=== PATIENT | female | born 1985 | race African-American/Black ===

== ENCOUNTER 2018-09-12 09:55 | Emergency (ER) | payer SELFPAY ==
[2018-09-12 10:02] VITALS: BP 120/60
[2018-09-12] MEDS ORDERED: ONDANSETRON 4 MG TAB.RAPDIS PO ONE (10:09)
[2018-09-12] MEDS ORDERED: FAMOTIDINE 20 MG TABLET PO ONE (10:09)
--- NOTE | 2018-09-12 10:21 | ER Document Report ---
ED General - General Chief Complaint: Upper Abdominal Pain Stated Complaint: STOMACH/BACK PAIN, VOMITING Time Seen by Provider: 09/12/18 10:03 TRAVEL OUTSIDE OF THE [place] IN LAST 30 DAYS: No - HPI Notes: Patient is a 33-year-old female that presents to the emergency department for chief complaint of abdominal pain and nausea. Patient reports 2 days of epigastric abdominal pain. The pain initially was intermittent and has now become more constant. She denies any aggravating or relieving factors. The pain does not change when she eats food. She has a history of cholecystectomy in the past. Patient has tried Tylenol at home for her symptoms which gave her some relief of the pain, her last dose was yesterday evening. She also reports nausea and one episode of emesis yesterday and today. Patient states her LMP was 08/13 and she has been having unprotected sexual intercourse. She denies any vaginal discharge or bleeding or concern for STD. Patient also complaining of urinary frequency but denies dysuria and fevers Past Medical History: Negative Past Surgical History: Cholecystectomy, x2 Social History: Denies drugs alcohol and tobacco Family History: Reviewed and noncontributory for presenting illness Allergies: Reviewed, see documented allergy list. REVIEW OF SYSTEMS: CONSTITUTIONAL : No fever No chills No diaphoresis No recent illness EENT: No vision changes No congestion No sore throat CARDIOVASCULAR: No chest pain No palpitations RESPIRATORY: No shortness of breath No cough No difficulty breathing GASTROINTESTINAL: abdominal pain nausea vomiting No diarrhea GENITOURINARY: No dysuria Urinary frequency No hematuria No difficulty urinating MUSCULOSKELETAL: No back pain No leg pain No arm pain SKIN: No rashes No lesions LYMPHATIC: No swollen, enlarged glands. NEUROLOGICAL: No lightheadedness No headache No weakness No paresthesias PSYCHIATRIC: No anxiety No depression PHYSICAL EXAMINATION: Vital signs reviewed, nursing noted reviewed. GENERAL: Well-appearing, well-nourished and in no acute distress. HEAD: Atraumatic, normocephalic. EYES: Eyes appear normal, extraocular movements intact, sclera anicteric, conjunctiva are normal. ENT: nares patent, oropharynx clear without exudates. Moist mucous membranes. NECK: Normal range of motion, supple without lymphadenopathy LUNGS: Breath sounds clear to auscultation bilaterally and equal. No wheezes rales or rhonchi. HEART: Regular rate and rhythm without murmurs ABDOMEN: Soft, nontender, normoactive bowel sounds. No rebound, guarding, or rigidity. No masses appreciated. EXTREMITIES: Nontender, good range of motion, no pitting or edema. NEUROLOGICAL: No focal neurological deficits. Moves all extremities spontaneously Motor and sensory grossly intact on exam. PSYCH: Normal mood, normal affect. SKIN: Warm, Dry, normal turgor, no rashes or lesions noted on exposed skin - Related Data Allergies/Adverse Reactions: grape Allergy (Verified 09/12/18 09:57) Penicillins Allergy (Verified 09/12/18 09:57) Past Medical History - Social History Smoking Status: Never Smoker Frequency of alcohol use: None Drug Abuse: None Family History: Reviewed & Not Pertinent Patient has suicidal ideation: No Patient has homicidal ideation: No Renal/ Medical History: Denies: Hx Peritoneal Dialysis Past Surgical History: Reports: Hx Section - x2, Hx Cholecystectomy Physical Exam - Vital signs Vitals: Temp Pulse Resp BP Pulse Ox 99.1 F 85 20 120/60 98 09/12/18 09:58 09/12/18 09:58 09/12/18 09:58 09/12/18 09:58 09/12/18 09:58 Course - Re-evaluation Re-evalutation: 09/12/18 10:21 Vitals reviewed. Nursing notes reviewed. Patient afebrile and nontoxic- appearing. She has no abdominal tenderness or peritoneal signs. She was given Zofran and Pepcid for symptomatic management. 09/12/18 11:07 Patient reevaluated. She is complaining of some low back pain but still denying any abdominal pain, vaginal discharge or pelvic pain. She is currently and ultrasound will be obtained to evaluate for ectopic because of her low back complaint. Urinalysis is positive for infection and patient given a dose of Macrobid. Patient states she is feeling better currently than when she presented. 09/12/18 12:22 Patient is Rh+ and not requiring RhoGam. 09/12/18 13:30 Patient's chlamydia test is positive. She will receive antibiotics in the emergency room. Ultrasound shows 5-week 2-day intrauterine gestation however pole was not visualized. It is recommended she have a repeat evaluation in 7-10 days. She was referred to the health department for [facility] follow-up. All questions answered. Discharged in stable condition. Laboratory 09/12/18 09/12/18 09/12/18 10:10 11:11 11:11 Beta HCG, Quant 3008.50 H Total Beta HCG POSITIVE Urine Color YELLOW Urine Appearance CLEAR Urine pH 6.0 Ur Specific Mcbrides 1.012 Urine Protein NEGATIVE Urine Glucose (UA) NEGATIVE Urine Ketones NEGATIVE Urine Blood SMALL H Urine Nitrite NEGATIVE Urine Bilirubin NEGATIVE Urine Urobilinogen NEGATIVE Ur Leukocyte Esterase MODERATE H Urine WBC (Auto) 15 Urine RBC (Auto) 2 Squamous Epi Cells Auto 1 Urine Mucus (Auto) OCC Urine Ascorbic Acid NEGATIVE Urine HCG, Qual POSITIVE H Chlamydia DNA (PCR) N.gonorrhoeae DNA (PCR) Blood Type A POSITIVE Rhogam Indicated RHOGAM NOT INDICATED 09/12/18 11:16 Beta HCG, Quant Total Beta HCG Urine Color Urine Appearance Urine pH Ur Specific Mcbrides Urine Protein Urine Glucose (UA) Urine Ketones Urine Blood Urine Nitrite Urine Bilirubin Urine Urobilinogen Ur Leukocyte Esterase Urine WBC (Auto) Urine RBC (Auto) Squamous Epi Cells Auto Urine Mucus (Auto) Urine Ascorbic Acid Urine HCG, Qual Chlamydia DNA (PCR) DETECTED H N.gonorrhoeae DNA (PCR) NOT DETECTED Blood Type Rhogam Indicated Transvaginal US 09/12/18 11:01 IMPRESSION: pole is not visualized. A follow-up examination in 7 to 10 days for re-evaluation. EGA 5 weeks 2 days Small uterine fibroid. Trimester of : First - 0 to 13 weeks. - Vital Signs Vital signs: Temp Pulse Resp BP Pulse Ox 99.1 F 85 20 120/60 98 09/12/18 09:58 09/12/18 09:58 09/12/18 09:58 09/12/18 09:58 09/12/18 09:58 - Laboratory Laboratory results interpreted by nj: 09/12/18 09/12/18 09/12/18 10:10 11:11 11:16 Beta HCG, Quant 3008.50 H Urine Blood SMALL H Ur Leukocyte Esterase MODERATE H Urine HCG, Qual POSITIVE H Chlamydia DNA (PCR) DETECTED H Discharge - Discharge Clinical Impression: Nausea, Chlamydia Qualifiers: Weeks of gestation: less than 8 weeks Qualified Code(s): Z3A.01 - Less than 8 weeks gestation of Low back pain Qualifiers: Chronicity: acute Back pain laterality: bilateral Sciatica presence: without sciatica Qualified Code(s): M54.5 - Low back pain UTI (urinary tract infection) Qualifiers: Urinary tract infection type: site unspecified Hematuria presence: without hematuria Qualified Code(s): N39.0 - Urinary tract infection, site not specified Condition: Stable Disposition: HOME, SELF-CARE Instructions: Urinary Tract Infection ([facility]), Chlamydia ([facility]), ([facility]) Additional Instructions: Please return to the emergency department if you have any worsening, or concern of your symptoms. Please return to the emergency department if you develop chest pain, difficulty breathing, severe abdominal pain, or ongoing vomiting. Please follow-up with your primary care physician in 2-3 days and any other recommended physicians. If prescribed, take all medications as directed. If you have any questions or concerns do not hesitate to return the emergency department for evaluation. [] Prescriptions: Nitrofurantoin Macrocrystal [Nitrofurantoin] 100 mg PO Q6 5 Days capsule Referrals: [facility] [Provider Group] - Follow up as needed [facility] [NO LOCAL MD] - Follow up in 3-5 days
[2018-09-12 10:51] LABS: APPEARANCE,URINE CLEAR; BILIRUBIN,URINE NEGATIVE (NEGATIVE); COLOR,URINE YELLOW; GLUCOSE, URINE NEGATIVE (NEGATIVE); KETONES,URINE NEGATIVE (NEGATIVE); LEUKOCYTE ESTERASE,URINE MODERATE (NEGATIVE); NITRITE,URINE NEGATIVE (NEGATIVE); PROTEIN,URINE NEGATIVE (NEGATIVE); URINE SPECIFIC GRAVITY 1.012; UROBILINOGEN,URINE NEGATIVE mg/dL (<2.0)
[2018-09-12] MEDS ORDERED: NITROFURANTOIN MONOHYD/M-CRYST 100 MG CAPSULE PO ONE (11:03)
[2018-09-12 13:14] LABS: CHLAM PCR DETECTED (NOT DETECT); GON PCR NOT DETECTED (NOT DETECT)
--- NOTE | 2018-09-12 13:27 | RADIOLOGY REPORT (SQ) ---
EXAM DESCRIPTION: U/S OB TRANSVAG W/DOPPLER COMPLETED DATE/TIME: 09/12/2018 1:10 pm REASON FOR STUDY: COMPARISON: None. TECHNIQUE: Transvaginal static and realtime grayscale images acquired of the pelvis. Additional remberto cted spectral and color Doppler images recorded. All images stored on PACs. [email or web address] CLINICAL DATES: BRIAN: 05/10/2019 EGA: 5 weeks 5 days LIMITATIONS: None. FINDINGS: FETUS: No pole is visualized. ULTRASOUND EGA: 5 weeks 2 days ULTRASOUND BRIAN: 05/13/2019 Gestational sac measures 0.6 cm correlating to 5 weeks 2 days. Yolk sac noted. UTERUS: The uterus measures 9.4 x 5.5 x 5.1 cm. A 1.4 x 1.5 x 0.9 cm uterine fibroid. CERVICAL LENGTH: 2.7 cm. Closed. RIGHT ADNEXA: Not visualized due to overlying bowel gas. LEFT ADNEXA: The left ovary measures 3.0 x 2.1 x 1.7 cm. Normal ovary with normal vascular flow. No adnexal free fluid. No adnexal masses. FREE FLUID: None. OTHER: No other significant finding. IMPRESSION: pole is not visualized. A follow-up examination in 7 to 10 days for re-evaluation . EGA 5 weeks 2 days Small uterine fibroid. Trimester of : First - 0 to 13 weeks. TECHNICAL DOCUMENTATION: JOB ID: [id number] [id number]- All Rights Reserved rev-02/17 Reading location - IP/workstation name: [email or web address]
[2018-09-12] MEDS ORDERED: CEFTRIAXONE INJ 250 MG VIAL IM ONE (13:28)
[2018-09-12] MEDS ORDERED: AZITHROMYCIN 1 GM SUSP PACKET PO ONE (13:29)
[2018-09-12] MEDS ORDERED: LIDOCAINE 1% INJ-PF (10 MG/ML) 30 ML SDV ONE (13:54)
== END 2018-09-12 14:11 | disposition home or self-care (01) ==
LOC: ER 09:55
DX: O98.811 Other maternal infectious and parasitic diseases complicating pregnancy, first trimester (principal); A74.9 Chlamydial infection, unspecified; O23.41 Unspecified infection of urinary tract in pregnancy, first trimester; O21.9 Vomiting of pregnancy, unspecified; O26.891 Other specified pregnancy related conditions, first trimester; R10.13 Epigastric pain; O99.89 Other specified diseases and conditions complicating pregnancy, childbirth and the puerperium; M54.5 Low back pain; Z3A.01 Less than 8 weeks gestation of pregnancy
CPT/HCPCS: 99284; 96372; 86900; 86901; 36415; 84702; 81025; 81001; 87491; 87591; 76817; 93976; S0119; J3490; Q0144; J0696; J8499